=== PATIENT | female | born 1975 | race African-American/Black ===

== ENCOUNTER 2016-06-25 11:41 | Emergency (ER) | payer BC, OTHER ==
[2016-06-25 11:42] VITALS: BMI 34.0
[2016-06-25 12:41] VITALS: TEMP 98.4
[2016-06-25 13:12] LABS: AUTOMATED BASOPHIL 0.8 % (0-2); AUTOMATED EOSINOPHIL 3.9 % (0-5); AUTOMATED LYMPH 39.1 % (17-44); AUTOMATED MONOCYTE 5.9 % (3-10); AUTOMATED NEUTROPHIL 50.3 % (45-76); MPV 8.8 fL (7.4-10.4)
[2016-06-25 13:19] LABS: LEUKOCYTES/URINE NEG (NEGATIVE); NITRITE/URINE NEG (NEGATIVE); RBC/URINE 0-2 (0-5); URINE OCCULT BLOOD 1+ (NEG/TRACE); WBC/URINE 0-2 (0-5)
[2016-06-25 13:24] LABS: BLOOD UREA NITROGEN 11 MG/DL (7-17); CALCIUM 11.2 MG/DL (8.4-10.2); CALCULATED OSMOLALITY 268 MOs/Kg (270-290); CHLORIDE 102 mEq/L (98-107); GLUCOSE 98 MG/DL (70-99); SODIUM LEVEL 140 mEq/L (137-146); TOTAL PROTEIN 9.3 G/DL (6.3-8.2)
[2016-06-25] MEDS ORDERED: ONDANSETRON HCL 4 MG/2 ML VIAL IV ONE (14:16)
[2016-06-25] MEDS ORDERED: HYDROmorphone 1 MG INJECTION IV ONE (14:16)
[2016-06-25] MEDS ORDERED: NS 1,000 ML IV ONE (14:16)
--- NOTE | 2016-06-25 14:20 | EDPRACDOC ---
- General Information Information Source: Patient Mode Of Arrival: Car - History of Present Illness Onset: 4 DAYS Pain Location: Reports: RLQ, Periumbilical Pain Context: Reports: Spontaneous Pain Severity: Mild Pain Quality: Reports: Aching Adult Abdominal History: Denies: Abdominal Surgery Female Abdominal History: Reports: Abdominal Surgery Modifying Factors: improves with: Nothing Female Associated Signs & Symptoms: Reports: Nausea Oral Intake: Normal Urinary Output: Normal <Patrick Forbes - Last Filed: 06/25/16 14:20> <Jaxon Jules - Last Filed: 06/25/16 15:53> - General Information Chief Complaint: Abdominal Pain Stated Complaint: RT LOWER ABD PAIN Time Seen by Provider: 06/25/16 14:13 Home Medications: Home Medications Ciprofloxacin HCl [Cipro] 500 mg PO BID #20 tab 06/25/16 Oxycodone HCl/Acetaminophen [Percocet 5-325 mg Tablet] 1 each PO Q4 #30 tablet 06/25/16 Tramadol HCl [Ultram] 50 mg PO BID PRN 06/25/16 Allergies/Adverse Reactions: Allergies Allergy/AdvReac Type Severity Reaction Status Date / Time cephalexin monohydrate Allergy Mild RASH Verified 04/02/16 19:30 [From Keflex] ED Past Medical History - History Reviewed Yes Nurses notes reviewed and agree except as marked - Patient Medical History Psychological History: Denies: Depression Surgical History: Reports: Hysterectomy (PARTIAL 2003) - Social Medical History Smoking Status: Never smoker <Patrick Forbes - Last Filed: 06/25/16 14:20> EDM Review of Systems - Review of Systems ROS Negative Except as Marked: Yes All systems reviewed and were negative except as marked <Patrick Forbes - Last Filed: 06/25/16 14:20> - Physical Exam Constitutional: Alert (Awake), No apparent distress Oriented to: Time, Person, Place - HEENT Head: Normal ( normocephalic) Eye Exam: Normal (PERRL, EOMI, Sclera white) Oropharynx: Normal (Pharynx:Moist without exudate,Gums-no swelling) ENT EAC: Normal TMJ: Normal Nose: No Symptoms Reported (septum midline) Neck: Normal (FROM, trachea at midline) - Respiratory/Cardiovascular Respiratory: Normal - CTA (BBS clear to auscultation without adventitious sounds ) Cardiovascular: Normal (RRR without murmur, gallop or rub) - GI Auscultation: Normal (NABS) Palpation: Normal (Soft,No rebound or guarding, non distended) Tenderness: Mild, Periumbilical Gutierrez's Sign: Negative - Musculoskeletal Back: Normal (Non-Tender) Extremities: Normal (Normal tone, Pulses 2+ No cyanosis or edema, FROM) - Integumentary Skin: Normal, Warm, Dry Lymphatics: Normal (no adenopathy) - Neurologic Memory Impaired: Normal Motor Function: Normal (Normal tone, Pulses 2+ No cyanosis or edema, FROM) Cranial Nerve: Normal (CN II-X11 intact sensation, strength 5/5) Cerebellar: Normal Mood Description: Normal Perception: Normal <Patrick Forbes - Last Filed: 06/25/16 14:20> - Results 06/25/16 12:39 06/25/16 12:39 <Patrick Forbes - Last Filed: 06/25/16 14:20> - Results 06/25/16 12:39 06/25/16 12:39 <Jaxon Jules - Last Filed: 06/25/16 15:53> - Results WBC 5.8 xk/uL (3.8-10.8) 06/25/16 12:39 RBC 5.48 xM/uL (4.20-5.40) H 06/25/16 12:39 Hgb 14.8 g/dL (12.0-16.0) 06/25/16 12:39 Hct 46.0 % (36-47) 06/25/16 12:39 MCV 84 fL (81-99) 06/25/16 12:39 MCH 27.1 pg (27-32) 06/25/16 12:39 MCHC 32.2 g/dl (33-36) L 06/25/16 12:39 RDW 13.2 % (11.5-14.5) 06/25/16 12:39 Plt Count 242 xk/uL (130-400) 06/25/16 12:39 MPV 8.8 fL (7.4-10.4) 06/25/16 12:39 Neut % (Auto) 50.3 % (45-76) 06/25/16 12:39 Lymph % (Auto) 39.1 % (17-44) 06/25/16 12:39 [place] % (Auto) 5.9 % (3-10) 06/25/16 12:39 Eos % (Auto) 3.9 % (0-5) 06/25/16 12:39 Baso % (Auto) 0.8 % (0-2) 06/25/16 12:39 Absolute Neuts (auto) 2.90 xk/uL (1.7-8.2) 06/25/16 12:39 Absolute Lymphs (auto) 2.26 xk/uL (0.65-4.75) 06/25/16 12:39 Sodium 140 mEq/L (137-146) 06/25/16 12:39 Potassium 4.1 mEq/L (3.5-5.1) 06/25/16 12:39 Chloride 102 mEq/L (98-107) 06/25/16 12:39 Carbon Dioxide 28 mMOL/L (22-33) 06/25/16 12:39 Anion Gap 14 mEq/L (8-16) 06/25/16 12:39 BUN 11 MG/DL (7-17) 06/25/16 12:39 Creatinine 0.70 MG/DL (0.52-1.04) 06/25/16 12:39 Estimated GFR (MDRD) > 60 mL/min (>=60) 06/25/16 12:39 Glucose 98 MG/DL (70-99) 06/25/16 12:39 Calculated Osmolality 268 MOs/Kg (270-290) L 06/25/16 12:39 Calcium 11.2 MG/DL (8.4-10.2) H 06/25/16 12:39 Total Bilirubin 0.6 MG/DL (0.2-1.3) 06/25/16 12:39 AST 23 IU/L (14-36) 06/25/16 12:39 ALT 28 IU/L (9-52) 06/25/16 12:39 Alkaline Phosphatase 73 IU/L (38-126) 06/25/16 12:39 Total Protein 9.3 G/DL (6.3-8.2) H 06/25/16 12:39 Albumin 4.7 G/DL (3.5-5.0) 06/25/16 12:39 Urine Color Yellow 06/25/16 12:42 Urine Clarity Clear 06/25/16 12:42 Urine pH 5.0 (5.0-8.0) 06/25/16 12:42 Ur Specific [place] 1.025 (1.003-1.035) 06/25/16 12:42 Urine Protein Neg (NEG/TRACE) 06/25/16 12:42 Urine Glucose (UA) Neg (NEGATIVE) 06/25/16 12:42 Urine Ketones Neg (NEGATIVE) 06/25/16 12:42 Urine Occult Blood 1+ (NEG/TRACE) H 06/25/16 12:42 Urine Nitrite Neg (NEGATIVE) 06/25/16 12:42 Urine Bilirubin Neg (NEGATIVE) 06/25/16 12:42 Urine Urobilinogen <2.0 MG/DL (0-1) 06/25/16 12:42 Ur Leukocyte Esterase Neg (NEGATIVE) 06/25/16 12:42 Urine RBC 0-2 (0-5) 06/25/16 12:42 Urine WBC 0-2 (0-5) 06/25/16 12:42 Ur Epithelial Cells 2+ 06/25/16 12:42 Urine Bacteria Few (NEG/FEW) 06/25/16 12:42 Urine Mucus Mod (NEG/OCC) H 06/25/16 12:42 Lab Results 06/25/16 06/25/16 06/25/16 12:42 12:39 12:39 WBC 5.8 RBC 5.48 H Hgb 14.8 Hct 46.0 MCV 84 MCH 27.1 MCHC 32.2 L RDW 13.2 Plt Count 242 MPV 8.8 Neut % (Auto) 50.3 Lymph % (Auto) 39.1 [place] % (Auto) 5.9 Eos % (Auto) 3.9 Baso % (Auto) 0.8 Absolute Neuts (auto) 2.90 Absolute Lymphs (auto) 2.26 Sodium 140 Potassium 4.1 Chloride 102 Carbon Dioxide 28 Anion Gap 14 BUN 11 Creatinine 0.70 Estimated GFR (MDRD) > 60 Glucose 98 Calculated Osmolality 268 L Calcium 11.2 H Total Bilirubin 0.6 AST 23 ALT 28 Alkaline Phosphatase 73 Total Protein 9.3 H Albumin 4.7 Urine Color Yellow Urine Clarity Clear Urine pH 5.0 Ur Specific [place] 1.025 Urine Protein Neg Urine Glucose (UA) Neg Urine Ketones Neg Urine Occult Blood 1+ H Urine Nitrite Neg Urine Bilirubin Neg Urine Urobilinogen <2.0 Ur Leukocyte Esterase Neg Urine RBC 0-2 Urine WBC 0-2 Ur Epithelial Cells 2+ Urine Bacteria Few Urine Mucus Mod H (Patrick Forbes) (Jaxon Jules) <Patrick Forbes - Last Filed: 06/25/16 14:20> Decision Time to Discharge: 15:48 - Departure Yes I personally saw and evaluated the patient. Disposition: Home Education/Counseling Given To: Patient Education/Counseling Given Regarding: Diagnosis, Treatment, Prognosis, Follow Up <Jaxon Jules - Last Filed: 06/25/16 15:53> - Departure Condition: Good Final Diagnosis: Abdominal pain, Abdominal wall mass Instructions: Acute Abdominal Pain (ED) Referrals: None,No Provider [Primary Care Provider] - One Week Michael Duong MD [Staff Physician] - One Week Patrick Sánchez MD [Staff Physician] - One Week Prescriptions: New Ciprofloxacin HCl [Cipro] 500 mg PO BID #20 tab Oxycodone HCl/Acetaminophen [Percocet 5-325 mg Tablet] 1 each PO Q4 #30 tablet No Action Tramadol HCl [Ultram] 50 mg PO BID PRN PRN Reason: Pain
[2016-06-25] MEDS ORDERED: Pharmacy Review for Metformin - IV Contrast Given SCH (15:00)
--- NOTE | 2016-06-25 15:31 | DIRPT ---
CLINICAL DATA: Lower abdominal and right lower quadrant pain, 4 days duration. Nausea up. EXAM: CT ABDOMEN AND PELVIS WITH CONTRAST TECHNIQUE: Multidetector CT imaging of the abdomen and pelvis was performed using the standard protocol following bolus administration of intravenous contrast. CONTRAST: 90 cc Isovue 370 COMPARISON: 07/13/2011 FINDINGS: Lung bases are clear. No pleural or pericardial fluid. The liver has normal appearance without focal lesions or biliary ductal dilatation. No calcified gallstones. The spleen is normal. The pancreas is normal. The adrenal glands are normal. The kidneys are normal. 1 cm cyst medial left kidney. No significant cyst, mass, stone or hydronephrosis. The aorta and IVC are normal. The appendix is retrocecal and normal. The patient does have slightly prominent nodes in the mesenteries of the right lower quadrant which could go along with the diagnosis of mesenteric adenitis. More normal ache, that is a pediatric diagnosis. Therefore, I doubt the significance of those small nodes. There is no abnormality of the abdominal wall to the right of midline. Surgical clips are present in this region. There is the appearance of a poorly marginated soft tissue mass measuring up to 4 cm in diameter. This extends over a cephalocaudal length of 6 cm. Whereas this could represent benign scarring, the possibility of a true soft tissue neoplasm does exist. I do not see any history stating the nature of this. Bowel was an immediate contact with the posterior margin of this lesion. I could not rule out adhesion or even serosal involvement. There is been previous hysterectomy. Bladder appears normal. No free fluid in the pelvis. Both ovaries are seen at the pelvic for M level and appear normal. There are chronic bilateral pars defects at L5 with 12 mm of anterolisthesis and degenerative disc disease at L5-S1. IMPRESSION: No abdominal organ pathology is seen. Slightly prominent lymph nodes in the mesentery. This could go along with the diagnosis of mesenteric adenitis, but could also be normal. That would be an unusual diagnosis in an adult. The appendix is normal. Anterior abdominal wall lesion within the substance of the lower rectus muscle on the right measuring 6 cm in length with a transverse diameter of 4 cm. Poorly marginated lesion. Surgical clips within the substance. Though this could represent benign scarring, the possibility of a mesenchymal tumor does exist. Loops of bowel are present along the posterior margin of this and could possibly be adhesed or even involved by serosal extension. Presumably, the nature of this abnormality is known from previous biopsy given the presence of the clips. Electronically Signed By: Bubba Chapin M.D. On: 06/25/2016 15:29
[2016-06-25 16:27] VITALS: BP 139/79; PULSE 76
== END 2016-06-25 16:20 | disposition home or self-care (01) ==
LOC: ED 11:41
DX: R10.9 Unspecified abdominal pain (principal); R19.00 Intra-abdominal and pelvic swelling, mass and lump, unspecified site
CPT/HCPCS: 36415; 74177; 80053; 81001; 85025; 96361; 96374; 96375; 99283; A9698; J1170; J2405